=== PATIENT | female | born 1935 | race Caucasian/White ===

== ENCOUNTER 2017-03-23 06:54 | Inpatient (IN) | payer MEDICARE, OTHER ==
[2017-03-23] VITALS (15 sets, daily range): BP systolic 97–144; BP diastolic 51–79; PULSE 64–91; RESP 12–18; O2SAT 92–99
[~2017-03-23] VITALS: Ht 160 cm; Wt 71.8 kg
--- NOTE | 2017-03-23 07:02 | ED.REPORT ---
HPI-Trauma Multiple Date of Service Mar 23, 2017 ED Provider: Rohit Prado MD Patient is an 81 year old female with a history of hypothyroidism who presents to the ED via airlift from [facility] with right hip pain secondary to a GLF that occurred just prior to arrival. Hip is externally rotated and foreshortened upon arrival to the ED. Per nursing note, the patient has been nauseous and experienced one episode of emesis. Patient reports that she was getting up from a chair and fell onto her right side. She was seen at [facility] and sent to the ED with concern for hip fracture. History is limited due to somnolence following Hydromorphone given for pain en route. Nursing Notes Stated Complaint: RT HIP PAIN Nursing Notes Reviewed: Yes Allergies: Coded Allergies: No Known Allergies (Unverified , 03/23/17) Scheduled Levothyroxine (Levothyroxine) 112 Mcg Tablet 112 MCG PO DAILY General Time Seen by Provider: 07:29 Chief Complaint Pelvic pain/injury (Right hip pain) Hx Obtained From: Patient Arrived By: Ambulance Onset Occurred: Just prior to arrival Symptom Duration: Since onset Progression Since Onset: Constant Location: : Hip right Quality: Painful Severity: Current: Moderate Severity: Maximum: Moderate Associated with: Reports: Nausea, Vomiting Pertinent Negative: Pt denies other symptoms Recent Healthcare: No recent doctor visit, No recent hospitalization Past Medical History Past Medical History Hypothyrodism Past Surgical History Bilateral knee replacement Smoking History Unknown if Ever Smoker Social History Other Social History: Local resident ([facility]) Ambulatory Status Independent Review of Systems GI: Reports: Nausea, Vomiting Musculoskeletal: Reports: Joint pain (Right hip pain) Complete sys rev & neg: except as marked. Physical Exam Initial Vital Signs Vital Signs (First) Date Time Temp Pulse Resp B/P Pulse Ox O2 Delivery O2 Flow Rate FiO2 03/23/17 07:39 36.7 69 17 130/63 97 Nasal Cannula 2 Initial VS: Reviewed Skin: Warm, Dry, No cyanosis Psychiatric: Mood/affect normal, Behavior normal, Normal thought content General/Constitutional: Awake, Alert, No acute distress Head / Eyes: Atraumatic, Normocephalic, PERRL Neck: Atraumatic, Supple, Full range of motion Respiratory / Chest: Atraumatic, Breath sounds NL, Breath sounds = bilat, No respiratory distress Cardiovascular: Heart rate NL, Regular rhythm, Heart sounds NL, No gallop, No murmurs, No rubs Abdomen: Atraumatic, Soft, Non-tender, No distention Back: Atraumatic, Inspection NL Neurologic: No motor deficits, No sensory deficits, CN II - XII intact Upper Extremity / MS: Atraumatic, Neurologic intact, Vascular intact UPPER EXTREMITIES: Dried blood present from IV start; UE exam otherwise normal Lower Extremity / Pelvis / MS: Neurologic intact, Vascular intact Lower Ext Brief Normals: Hip L exam normal, Knee R exam normal, Knee L exam normal, Leg / calf R exam normal, Leg / calf L exam normal, Ankle R exam normal , Ankle L exam normal, Foot R exam normal, Foot L exam normal Right Hip: Positive: Leg externally rotated, Leg shortened, ROM reduced... ( All ROM limited due to pain), Tenderness present... LOWER EXTREMITIES: Bilateral knee replacement scars Good DP and PT pulses in both LE No obvious deformity present Interpretation & Diagnostics Lab Results Interpretation Result Diagram: 03/23/17 0810 03/23/17 0810 Test 03/23/17 08:10 White Blood Count 7.7th/mm3 (3.8-10.1) Red Blood Count 3.88mil/mm3 (3.90-5.20) Hemoglobin 11.6g/dL (12.0-15.6) Hematocrit 35.4% (35.0-46.0) Mean Corpuscular Volume 91.2fL (81-100) Mean Corpuscular Hemoglobin 29.9pg (27.0-35.0) Mean Corpuscular Hemoglobin Concent 32.8% (32.0-37.0) Red Cell Distribution Width 12.7% (12.3-15.4) Platelet Count 256bil/L (150-400) Neutrophils (%) (Auto) 79.7% (40-74) Lymphocytes (%) (Auto) 14.5% (14-46) Monocytes (%) (Auto) 4.3% (4-12) Eosinophils (%) (Auto) 0.5% (0-5) Basophils (%) (Auto) 0.3% (0-3) Prothrombin Time 10.5sec (8.1-12.5) Prothromb Time International Ratio 0.98ratio Activated Partial Thromboplast Time 25.0sec (22.8-33.0) Sodium Level 139mEq/L (134-144) Potassium Level 4.1mEq/L (3.5-5.2) Chloride Level 105mEq/L (97-108) Carbon Dioxide Level 22mmol/L (18-29) Blood Urea Nitrogen 18mg/dL (8-27) Creatinine 0.65mg/dL (0.57-1.00) Estimat Glomerular Filtration Rate 126mL/min (>59) Glucose Level 136mg/dL (60-99) Calcium Level 8.3mg/dL (8.5-10.1) Total Bilirubin 0.5mg/dL (0.0-1.2) Aspartate Amino Transf (AST/SGOT) 17U/L (0-50) Alanine Aminotransferase (ALT/SGPT) 13U/L (0-32) Alkaline Phosphatase 47U/L (25-165) Total Protein 5.8g/dL (6.4-8.4) Albumin 3.5g/dL (3.4-5.0) Hold Kramer Top Tube Received (Received) ECG Interpretation ECG Interpretation: Sinus Rhythm Rate [address] elevation Abnormal R wave progression No T wave abnormalities No prior for comparison Time: 20:13 Interpreted by: ED physician X-Ray Chest Interpretation Chest Xray Interpretation: IMPRESSION: 1. Widened mediastinum may be caused by a combination of AP technique, tortuous aorta and prominent central pulmonary vessels. Recommend standard 2-view chest x-ray or chest CT for further evaluation. 2. Right suprahilar density may be pneumonia or atelectasis. Dictated by: Quita Abernathy M.D. on 03/23/2017 at 9:35 Interpretation / Wet Read by: Interpret - Radiologist X-Ray Interpretation Xray Interpretation: IMPRESSION: Right femoral neck fracture. Dictated by: Quita Abernathy M.D. on 03/23/2017 at 9:43 X-Ray Ordered: Hip right Interpretation / Wet Read by: Interpret - ED physician Re-Eval/Medical Decision Med Decision/Clinical Course Patient is a relatively healthy 81-year-old female who presents to the emergency department after being airlifted here from [facility] after sustaining a ground-level fall onto her right hip. She is complaining of right hip pain examination reveals external rotation and foreshortening of her right lower extremity. She is neurovascularly intact with good DP and PT pulses. She is somewhat somnolent after receiving hydromorphone by EMS and provides limited history. Not on blood thinners and she did not strike her head. Here in the emergency department the patient is afebrile with stable vital signs and examination as above. EKG Sinus Rhythm Rate [address] elevation Abnormal R wave progression No T wave abnormalities No prior for comparison Hip X-ray Right femoral neck fracture. Chest X-ray IMPRESSION: 1. Widened mediastinum may be caused by a combination of AP technique, tortuous aorta and prominent central pulmonary vessels. Recommend standard 2-view chest x -ray or chest CT for further evaluation. 2. Right suprahilar density may be pneumonia or atelectasis. Patient remained hemodynamically stable and in no apparent distress. Full head to toe examination revealed no other additional injuries. Patient discussed with orthopedic surgery and they plan to operatively intervene later this afternoon. She has been made nothing by mouth and placed on maintenance fluids. Patient was discussed with admitting hospitalist accepted for further management. Re-Evaluation/Progress : Time of Eval: 09:35 Re-Evaluation/Progress Note: Patient is resting comfortably. Consultation #1: Referral / Consult Name: Jack Null MD Consulted With: Orthopedic Call Returned at: 09:33 Pellet Machine Operator: Will see patient, Agrees with eval, Agrees with plan Note: Agrees to consult. Recommends admission to the hospitalist. Consultation #2: Referral / Consult Name: Jono Rodriguez MD Consulted With: Hospitalist Call Returned at: 10:56 Pellet Machine Operator: Will see patient, Agrees with eval, Agrees with plan, Accepts admit Counseled Regarding: Diagnosis, Lab results, Need for admission Discharge & Departure Impression: Primary Impression: Fracture of femoral neck, right Encounter type: initial encounter Fracture type: closed Qualified Code: S72.001A - Fracture of unspecified part of neck of right femur, initial encounter for closed fracture Additional Impressions: Fall from ground level Altered mental status Altered mental status type: unspecified Qualified Code: R41.82 - Altered mental status, unspecified Posttraumatic pain Nausea and vomiting Vomiting type: unspecified Vomiting Intractability: unspecified Qualified Code: R11.2 - Nausea with vomiting, unspecified Disposition: ADMITTED TO HOSPITAL Discharge Condition All VS Reviewed: Yes Condition: Stable Referrals: Narendra Torres MD (PCP) Makenzieibe Attestation Portions of this note were transcribed by Ambar Preciado. I, Dr. Prado personally performed the history, physical exam and medical decision-making; I reviewed and confirmed the accuracy of the information in the transcribed note. Signed by: Glenny Valdez, 03/23/17 1102. copies to: Narendra Torres MD,Rohit Peacock MD Mar 23, 2017 07:02 AMBAR PRECIADO Mar 23, 2017 07:33
[2017-03-23] MEDS ORDERED: Ondansetron 2 mg/mL 2 mL Inj IVPUSH ONE (07:50)
[2017-03-23] MEDS ORDERED: Ketamine 10 mg/mL 20 mL Inj ONE (08:00)
[2017-03-23] MEDS ORDERED: EPHEDrine/NS 5 mg/mL 5 mL Syringe ONE (08:00)
[2017-03-23] MEDS ORDERED: Phenylephrine/NS 100 mCg/mL 10 mL Syringe IVPUSH ONE (08:00)
[2017-03-23] MEDS ORDERED: fentaNYL-PF 50 mCg/mL 2 mL Inj ONE (08:00)
[2017-03-23] MEDS ORDERED: Propofol 10,000 mCg/mL 20 mL Inj ONE (08:00)
[2017-03-23] MEDS ORDERED: LEVO112T4 PO (08:04)
[2017-03-23] MEDS: Lactated Ringer's 1,000 ML IV SCH ×4 (08:06→22:38)
[2017-03-23 08:27] LABS: BASOPHILS % (AUTO) 0.3 % (0-3); EOSINOPHILS % (AUTO) 0.5 % (0-5); MONOCYTES % (AUTO) 4.3 % (4-12); Mean Corpuscular Hemoglobin 29.9 pg (27.0-35.0); Mean Corpuscular Volume 91.2 fL (81-100); NEUTROPHILS % (AUTO) 79.7 % (40-74); Platelet Count 256 bil/L (150-400)
[2017-03-23 08:48] LABS: INR 0.98 ratio
--- NOTE | 2017-03-23 09:41 | DRSVH ---
PROCEDURE: X-RAY CHEST ONE VIEW, PORTABLE ([id number]) INDICATIONS: Acute mental status change. TECHNIQUE: One view of the chest was acquired. COMPARISON: None. FINDINGS: Surgical changes and devices: None. Lungs and pleura: There is a right suprahilar density. There is thickening of the right minor fissur e or trace fluid within the fissure. No pneumothorax. Mediastinum: Widened mediastinum. Heart size is normal. Bones and chest wall: No suspicious bony lesions. Overlying soft tissues appear unremarkable. IMPRESSION: 1. Widened mediastinum may be caused by a combination of AP technique, tortuous aorta and prominent c entral pulmonary vessels. Recommend standard 2-view chest x-ray or chest CT for further evaluation. 2. Right suprahilar density may be pneumonia or atelectasis. Dictated by: Quita Abernathy M.D. on 03/23/2017 at 9:35 Approved by: Quita Abernathy M.D. on 03/23/2017 at 9:39
--- NOTE | 2017-03-23 09:46 | DRSVH ---
PROCEDURE: X-RAY RIGHT HIP COMPLETE, MINIMUM TWO VIEWS ([id number]) INDICATIONS: 81 year-old woman with fall. TECHNIQUE: 2 views of the hip were acquired. COMPARISON: None. FINDINGS: Bones: There is a subcapital fracture of the right femoral neck with increased angulation. No suspi cious bony lesions. The visualized pelvic ring appears intact. Degenerative joint disease noted in the hips bilaterally. Soft tissues: No suspicious soft tissue calcifications or masses. IMPRESSION: Right femoral neck fracture. Dictated by: Quita Abernathy M.D. on 03/23/2017 at 9:43 Approved by: Quita Abernathy M.D. on 03/23/2017 at 9:44
[2017-03-23] MEDS ORDERED: MetoCLOpramide 5 mg/mL 2 mL Inj IVPUSH ONE (10:15)
[2017-03-23] MEDS ORDERED: Alum-Mag Hydrox-Simeth 30 mL Suspension PO PRN ×2 (11:00→18:40)
[2017-03-23] MEDS ORDERED: Ondansetron 2 mg/mL 2 mL Inj IVPUSH PRN ×2 (11:00→16:55)
[2017-03-23] MEDS ORDERED: Polyethylene Glycol (PEG) 17 Gm Powder PO PRN (11:00)
[2017-03-23] MEDS ORDERED: fentaNYL-PF 50 mCg/mL 2 mL Inj IVPUSH ONE (11:10)
[2017-03-23] MEDS ORDERED: HYDROmorphone 0.5 mg/0.5 mL iSecure Syringe IVPUSH ONE (11:10)
[2017-03-23] MEDS ORDERED: HYDROmorphone 0.5 mg/0.5 mL iSecure Syringe IVPUSH PRN (13:00)
--- NOTE | 2017-03-23 13:27 | PCM.HPMED ---
Subjective Date of Service Mar 23, 2017 Primary Provider: Admitting Physician: Jono Rodriguez MD Primary Care Physician: Zoran Attending Physician: Jono Rodrgiuez MD Chief Complaint: Hip Fracture History of Present Illness: Patient is a 81 yo F with pmh of hypothyroidism, breast cancer s/p mastectomy, tristen knee replacement and femur fracture, who is being admitted due to hip fracture. Patient was at home, getting up from chair, tried to kick in a chair and ended up tripping and falling on her right side. She denies any syncopal episode at that point, did not hit her head. She mentioned that she did have a bone density scan about 15 years ago and it was normal. Does take vitamin D at home. Denies chest pain, shortness of breath or diarrhea. Allergies Coded Allergies: No Known Allergies (Unverified , 03/23/17) Constitutional: No: Chills, Fever, Malaise, Other, Sweats, Weakness Eyes: Denies: Blurred Vision, Conjunctive Inflammation, Double Vision, Eyelid Inflammation, Other, Pain, Pigmentosa, Redness, Retinitis, Vision Changes ENT: Denies: Dental Problems, Dysphagia, Ear Discharge, Ear Pain, Hoarseness, Membranes Dry, Nasal Congestion, Nose Discharge, Nose Pain, Other, Throat Pain, Tinnitus, Ulcers/Sores in Mouth Cardiovascular: Denies: Chest Pain, Edema, Lt Headedness, Orthopnea, Other, Palpitations, Paroxysmal Noc. Dyspnea Respiratory: Denies: Cough, Hemoptysis, Other, Pleuritic Chest Pain, SOB with Exertion, Shortness of Breath, Sputum, Wheezing Gastrointestinal: Denies: Abdominal Pain, Change in Appetite, Constipation, Diarrhea, Heartburn, Hematochezia, Melena, Nausea, Other, Use of Laxatives, Vomiting Genitourinary: Denies: Anuria, Change in Frequency, Dysuria, Hematuria, Incontinence, Nocturia, Other, Retention Musculoskeletal: Reports: Other (as per HPI) Skin: Denies: Bruising, Dry or Flakiness, Jaundice, Lesions, Other, Rash, Scars , Ulcers Neurological: Denies: Change in Speech, Confusion, Dizziness, Dyskinesia, Hyper Reflexia, Incoordination, Numbness, Other, Seizures, Somnolence, Tremors, Weakness Psychologic: Denies: Agitation, Disorientation, Excitation, Giddiness, Hostile , Insomnia, Instability, Bonnie, Nervousness, Night Terrors, Other, Perseveration , Phobia, Sexual Disturbances Endocrine: Denies: Change in Appitite, Diaphoresis, Intolerent to Heat/Cold, Polydipsea, Polyuria PMH Social History Hx Alcohol Use: Yes (socially) Hx Substance Use: No Smoking Status: Unknown if Ever Smoker Exam Vital Signs Vital Sign - Last Date Time Temp Pulse Resp B/P Pulse Ox O2 Delivery O2 Flow Rate FiO2 03/23/17 11:28 36.5 64 17 144/79 99 Nasal Cannula 3.00 Exam Skin: Warm, Dry, No cyanosis Psychiatric: Mood/affect normal, Behavior normal, Normal thought content General/Constitutional: Awake, Alert, No acute distress Head / Eyes: Atraumatic, Normocephalic, PERRL Neck: Atraumatic, Supple, Full range of motion Respiratory / Chest: Atraumatic, Breath sounds NL, Breath sounds = bilat, No respiratory distress Cardiovascular: Heart rate NL, Regular rhythm, Heart sounds NL, No gallop, No murmurs, No rubs Abdomen: Atraumatic, Soft, Non-tender, No distention Back: Atraumatic, Inspection NL Neurologic: No motor deficits, No sensory deficits, CN II - XII intact Musckoskletal: Right leg rotated internally Lab and Diagnostics Result Diagram: 03/23/17 0810 03/23/17 0810 X-Rays, CTs and MRIs XR right hip IMPRESSION: Right femoral neck fracture. Assessment & Plan > Right hip fracture - subcapital fracture of the right femoral neck with increased angulation, ortho been consulted, OR today - zofran prn for nausea - morphine for pain , patient got dilauded enroute, did not like how it made her feel - DVT prophylaxis after surgery - calcium borderline low, will check vitamin D levels > Hypothyroidism - will continue home dose FEN: npo for now , can be started on regular diet after surgery Patient is expected to stay inpatient > 2 days due to nature of the disease and complexities that can arise from it. Dispo: likely SNF after surgery. Pain Evaluation: Adequate Pain Control Resuscitation Status: CPR: Attempt Resuscitation Time spent 35 mins. Jono Rodriguez MD Mar 23, 2017 13:27
[2017-03-23] MEDS ORDERED: Bupivacaine Liposome 1.3% 20 mL Inj ONE (15:22)
[2017-03-23] MEDS ORDERED: 0.9% Sodium Chloride 200 ML ONE (15:26)
[2017-03-23] MEDS: Tranexamic Acid 100 mg/mL 10 mL Inj ONE ×2 (15:30→16:45)
[2017-03-23] MEDS ORDERED: Bupivacaine-MPF 0.25%/EPI 30 mL Inj INFILTRATE ONE (15:54)
[2017-03-23] MEDS ORDERED: Gentamicin 40 mg/mL 2 mL Inj IRRIGATION ONE ×2 (15:55→16:37)
--- NOTE | 2017-03-23 16:23 | NUR ---
admitted to room 1022 from ER at 1200 alert, oriented, comfortable, VSS, signed consent for partial R JANES, daughter here, Ortho signs OK, taken to OR at 1500
[2017-03-23] MEDS ORDERED: HYDROmorphone 1 mg/mL Inj IVPUSH PRN (16:55)
[2017-03-23] MEDS ORDERED: Lactated Ringer's 1,000 ML IV SCH (16:55)
[2017-03-23] MEDS ORDERED: Atropine 0.4 mg/mL Inj IVPUSH PRN (16:55)
[2017-03-23] MEDS ORDERED: fentaNYL-PF 50 mCg/mL 2 mL Inj IVPUSH PRN (16:55)
[2017-03-23] MEDS ORDERED: MetoCLOpramide 5 mg/mL 2 mL Inj IVPUSH PRN (16:55)
[2017-03-23] MEDS ORDERED: Lactated Ringer's 500 ML IV PRN (16:55)
[2017-03-23] MEDS ORDERED: Dexamethasone 4 mg/mL Inj IVPUSH PRN (16:55)
[2017-03-23] MEDS ORDERED: EPHEDrine Sulfate 50 mg/mL Inj IVPUSH PRN (16:55)
[2017-03-23] MEDS ORDERED: Labetalol 5 mg/mL 4 mL Inj IV PRN (16:55)
[2017-03-23] MEDS ORDERED: hydrALAZINE 20 mg/mL Inj IVPUSH PRN (16:55)
[2017-03-23] MEDS ORDERED: Phenylephrine 10,000 mCg/mL Inj IVPUSH PRN (16:55)
--- NOTE | 2017-03-23 17:14 | PCM.ANEP1 ---
Post Anesthesia PACU Phase 1 Assessment Date of Service: Mar 23, 2017 Vital Signs 36.5 100/57 93 16 94% RA Anesthetic Administered: SAB Level of Alertness: Awake, talking CÁRDENAS's with Equal Strength: Yes Pain: No Pain Scale Score: 0 Nausea or Vomiting: No CV Function & Hydration Stable: Yes Airway Device: Oxygen Delivery: Room Air Lungs: Clear to Auscultation Dermatome Level: T8 (Costal Margin) PACU Phase 2 Assessment Complications: No Follow up Care: No Patient Instructions Provided: Yes Graham Woodall MD Mar 23, 2017 17:14
--- NOTE | 2017-03-23 17:15 | PCM.HPANE ---
Patient Data Date of Service: Mar 23, 2017 Surgeon Admitting Provider:Jono Rodriguez MD Attending Provider:Jono Rodriguez MD Primary Care Physician:Zoran Other Provider: Reason for Visit Right Hip Fracture Ht/WT & BMI Height (Feet): 5 Height (Inches): 3.00 Weight (Kilograms): 71.800 Body Mass Index 28.05 Allergies Coded Allergies: No Known Allergies (Unverified , 03/23/17) Past Anesthesia History Anesthesia History: Denies:: Abnormal Airway, Anesthesia Reactions Diabetes History Hx Diabetes?: No MRSA MRSA: No Medications Reported Medications Levothyroxine 112 Mcg [id number] Mcg PO DAILY For Thyroid Replacement Ref 0 03/23/17 History History of ENT Problems?: No HEENT History: Denies:: Cataracts Dysphagia Glaucoma Sinus Problem Denture Type: None Teeth Condition: Within Normal Limits Hx of Heart Problems?: No Cardiovascular History: Denies:: Congestive Heart Failure Hypertension Hx of Respiratory Problem?: No Respiratory History: Denies:: Tuberculosis Hx Neurologic Problems?: No Hx of GI Problems?: No Hx of Problems?: No Genitourinary History: Positive for:: Urinary Tract Infection Female Hx: Denies:: Currently Hx Musculoskeletal Problems?: Yes Musculoskeletal History: Positive for:: Joint Replacement (both knees) Denies:: Back Injury Hx of Psycho/Social Problems?: No Hx Surgeries?: Yes (left mastectomy) History Blood Transfusions: Positive for:: Accept Blood Products? Blood Transfusions Denies:: Blood Transfuse Reaction Hx Diabetes: No Hx Alcohol Use: Yes (socially)Hx Substance Use: No Smoking Status: Unknown if Ever Smoker Stop/Bang Treated for Sleep Apnea?: No Do You Have a CPAP Machine?: No S-Snoring: Do You Snore Loudly: No T-Tired: feel tired, fatigued: No O-Obsered: Observed not breath: No P-Blood Pressure: treated: No B- Body Mass Index > 35 kg/m2: No A- Age over 50: Yes N- Neck Large Circumference: No G- Gender Male: No LIZBETH Total Score: 0 LIZBETH Risk Assessment: Low Risk, <3 Yes Risk Assessment Category Category 1A: Patient has history of documented sleep apnea, and HAS NOT received any narcotic, sedative or anesthesia administration during this stay. Category 1B: Patient has history of documented sleep apnea, and HAS received any narcotic , sedative or anesthesia administration during this stay Category 2: Patient has SUSPECTED Obstructive Sleep Apnea, and HAS received any narcotic , sedative or anesthesia administration during this stay. Category 3: Patient has SUSPECTED Obstructive Sleep Apnea and HAS NOT received narcotic, sedative or anesthesia administration during this stay. Category 4: Outpatient in Procedural Areas with known sleep apnea or who screen positive for High Risk via the STOP/BANG questionnaire. Exam Exam Vital Signs Vital Signs Date Time Temp Pulse Resp B/P Pulse Ox O2 Delivery O2 Flow Rate FiO2 03/23/17 11:28 36.5 64 17 144/79 99 Nasal Cannula 3.00 03/23/17 10:49 36.8 67 17 127/71 96 Room Air 03/23/17 09:17 67 17 127/71 96 Room Air 03/23/17 07:39 36.7 69 17 130/63 97 Nasal Cannula 2 General Appearance: Alert, Oriented X3, Cooperative, No Acute Distress HEENT/AIRWAY: MP 2 Lungs: Clear to Auscultation, Normal Air Movement Heart: Exam Unremarkable, Regular Rate/Rhythm, No Murmurs/Rubs/Gallops Meds/Labs/Diagnostics Admission Meds Current Medications Ondansetron HCl 8 mg 8 mg ONCE ONCE IVPUSH Last administered on 03/23/17 08: 00; Start 03/23/17 at 07:50; Stop 03/23/17 at 07:53; Status DC Lactated Ringer's (Lr) 1,000 ml @ 100 mls/hr Q10H IV Last administered on 03/23 08:06; Start 03/23/17 at 07:50 Metoclopramide HCl (Reglan Inj) 5 mg ONCE ONCE IVPUSH Last administered on 10:29; Start 03/23/17 at 10:15; Stop 03/23/17 at 10:16; Status DC Labs Test 03/23/17 08:10 White Blood Count 7.7th/mm3 (3.8-10.1) Red Blood Count 3.88mil/mm3 (3.90-5.20) Hemoglobin 11.6g/dL (12.0-15.6) Hematocrit 35.4% (35.0-46.0) Mean Corpuscular Volume 91.2fL (81-100) Mean Corpuscular Hemoglobin 29.9pg (27.0-35.0) Mean Corpuscular Hemoglobin Concent 32.8% (32.0-37.0) Red Cell Distribution Width 12.7% (12.3-15.4) Platelet Count 256bil/L (150-400) Neutrophils (%) (Auto) 79.7% (40-74) Lymphocytes (%) (Auto) 14.5% (14-46) Monocytes (%) (Auto) 4.3% (4-12) Eosinophils (%) (Auto) 0.5% (0-5) Basophils (%) (Auto) 0.3% (0-3) Prothrombin Time 10.5sec (8.1-12.5) Prothromb Time International Ratio 0.98ratio Activated Partial Thromboplast Time 25.0sec (22.8-33.0) Sodium Level 139mEq/L (134-144) Potassium Level 4.1mEq/L (3.5-5.2) Chloride Level 105mEq/L (97-108) Carbon Dioxide Level 22mmol/L (18-29) Blood Urea Nitrogen 18mg/dL (8-27) Creatinine 0.65mg/dL (0.57-1.00) Estimat Glomerular Filtration Rate 126mL/min (>59) Glucose Level 136mg/dL (60-99) Calcium Level 8.3mg/dL (8.5-10.1) Total Bilirubin 0.5mg/dL (0.0-1.2) Aspartate Amino Transf (AST/SGOT) 17U/L (0-50) Alanine Aminotransferase (ALT/SGPT) 13U/L (0-32) Alkaline Phosphatase 47U/L (25-165) Total Protein 5.8g/dL (6.4-8.4) Albumin 3.5g/dL (3.4-5.0) Hold Kramer Top Tube Received (Received) Plan Impression Patient chart reviewed, patient interviewed and anesthestic plan with risks, benefits, and alternatives discussed, and informed consent obtained. NPO per Anesth. Guidelines: Yes ASA Physical Status: ASA2 Mod Systemic Disease Anesthetic Plan: SAB Bene/Risks/Altern/Consents: Yes HP Complete Prior to Induction: Yes Graham Woodall MD Mar 23, 2017 14:32
--- NOTE | 2017-03-23 17:50 | NUR ---
returned to room 1022 from PACU S/P right partial hip arthroplasty. VSS, alert, denies pain or nausea, but only wanted soup for dinner. ortho signs OK, bulky dressing C/D/I
--- NOTE | 2017-03-23 18:21 | DRSVH ---
PROCEDURE: X-RAY PELVIS ONE OR TWO VIEWS ([id number]) INDICATIONS: POST OP TECHNIQUE: 1 view of the lower pelvis acquired. COMPARISON: [facility], CR, XR HIP 2VW RT, 03/23/2017, 8:10. FINDINGS: Bones: Patient is status post right hip arthroplasty, with hardware components in expected positions . The hip joint appears congruent. The visualized bony structures appear intact. There is severe l eft hip joint degeneration. Soft tissues: Overlying postoperative changes are noted. No suspicious soft tissue densities. IMPRESSION: Right hip prosthesis in anatomic alignment. Dictated by: Quita Abernathy M.D. on 03/23/2017 at 18:18 Approved by: Quita Abernathy M.D. on 03/23/2017 at 18:19
[2017-03-23] MEDS ORDERED: Ondansetron 8 mg ODT Tablet PO PRN (18:40)
[2017-03-23] MEDS ORDERED: Magnesium Hydroxide 10 mL Oral Concentration PO PRN (18:40)
[2017-03-23] MEDS ORDERED: hydrOXYzine Pamoate 25 mg Capsule PO PRN (18:40)
[2017-03-23] MEDS ORDERED: MetoCLOpramide 5 mg/mL 2 mL Inj IV PRN (18:40)
[2017-03-23] MEDS ORDERED: diphenhydrAMINE 25 mg Capsule PO PRN (18:40)
[2017-03-23] MEDS ORDERED: LORazepam 0.5 mg Tablet PO PRN (18:40)
[2017-03-23] MEDS ORDERED: Sodium Biphos-Phos 133 mL Enema RECTAL PRN (18:40)
[2017-03-23] MEDS ORDERED: Vancomycin 1 Gm/200 mL NS Premix IV ONE (20:30)
[2017-03-23] MEDS: HYDROcodone-APAP 5-325 mg Tablet PO PRN (21:44)
[2017-03-24 00:27] VITALS: BP 101/64; PULSE 80; RESP 16; O2SAT 97
[2017-03-24] MEDS: CeFAZolin 2 Gm/50 mL D5W IV Premix IV SCH ×3 (00:58→16:44)
--- NOTE | 2017-03-24 02:18 | HP ---
[address] [address] HISTORY AND PHYSICAL PATIENT: WILVER HSU : 1935 MR#: [id number] ADMIT: 03/23/2017 JOB ID: [id number] HISTORY OF PRESENT ILLNESS: The patient is seen in consultation after being admitted to the emergency department following a fall. She denies loss of consciousness. She tripped while moving across her living room. She complained of isolated but severe right hip pain, and inability to move the leg, nor place weight on the limb. She was evaluated and noted to have a femoral neck fracture. PAST MEDICAL HISTORY: The past medical history, social history, family history, review of systems are noted and reviewed in the chart. She has undergone several orthopedic procedures, but is otherwise very healthy. Taking only thyroid medication for medications. PHYSICAL EXAMINATION: GENERAL: She is alert and oriented x3. Appropriate mood and affect. No head and neck trauma noted. No spinal tenderness or pain. Marked discomfort with rotation of her hip. Any rotation causes hip pain. There are no skin lesions in the area of the hip. RADIOGRAPHS: Reveal the femoral neck fracture. Treatment options discussed with the patient and family. They would like to proceed with bipolar hip arthroplasty. They understand and accept the potential for risks and complications which include, but not limited to, leg length inequality and dislocation, infection, thromboembolic, neurovascular . They state understanding and wish to proceed.
[2017-03-24] MEDS: HYDROcodone-APAP 5-325 mg Tablet PO PRN ×2 (03:55→08:31)
--- NOTE | 2017-03-24 04:56 | NUR ---
Activity Pt post op day 1 for R hip surgery with spinal. FC out in surgery. Pt OOB to BSC to void with 2PA and FWW X2 this shift and tolerates well. Dressing C/D/I and to be changed post op day 2.
[2017-03-24 05:17] VITALS: BP 119/69; PULSE 88; RESP 16; O2SAT 96
--- NOTE | 2017-03-24 05:28 | OP ---
[address] [address] OPERATIVE REPORT PATIENT: WILVER HSU : 1935 MR#: [id number] ADMIT: 03/23/2017 JOB ID: [id number] DATE OF SURGERY: PREOPERATIVE DIAGNOSIS(ES): Femoral neck fracture right hip. POSTOPERATIVE DIAGNOSIS(ES): Femoral neck fracture right hip. PROCEDURE: Right bipolar hip arthroplasty. SURGEON: Jack Null MD. RETAIL CLIENT MANAGER: Theodore Banuelos PA-C. Golf Player Assistant required due to the complexity of the operation. INDICATIONS: This woman fell and has a femoral neck fracture. She elects for a bipolar arthroplasty she understands and accepts the potential for risks and complication which include but is not limited to infection, thromboembolic, neurovascular events, as well as leg length inequality, dislocation. PROCEDURE: The patient was prepped and draped in the usual sterile fashion. Lateral decubitus position on the table. With posterior-lateral approach made dissection carried down. Deep fascia opened. External rotators tagged and released. Capsule T tagged and released. Femoral neck dislocated and a revised femoral neck cut made. The head fragment was then removed as well as the intercalated segment and the area was lavaged and debrided. A box osteotome followed by progressive broaching to a #4 DePuy [place] stem. A distal cement restrictor plug was placed. Trial reduction was performed and a 1.5 neck length was chosen with a 44 mm head after templating the head size. Copious irrigation of the canal followed by pressurized cementation. Excess cement removed during the curing process. Final construct assembled. Excellent stability obtained after dislocation. Capsule closed with #1 braided nylon. External rotators closed with number one braided nylon #2 Quill followed by 2-0 Vicryl, 3-0, and a 4-0 intracuticular stitch utilized to close the skin.
--- NOTE | 2017-03-24 08:30 | PCM.PNMED ---
Subjective Date of Service Mar 24, 2017 Subjective Patient seen and examined today. Alert and oriented X 3, however feels nauseus. Vitals stable. Exam Vital Signs Vital Sign - Last Date Time Temp Pulse Resp B/P Pulse Ox O2 Delivery O2 Flow Rate FiO2 03/24/17 05:17 36.9 88 16 119/69 96 Nasal Cannula 3.00 Intake and Output 03/23/17 03/23/17 03/24/17 Cumulative From/Thru 15:00 23:00 07:00 03/23/17 07:39 - 03/24/17 06:30 Intake Total 950 ml 1607 ml 2557 ml Output Total 100 ml 600 ml 700 ml Balance 850 ml 1007 ml 1857 ml Intake Oral 0 ml 200 ml 200 ml IV Total 950 ml 1407 ml 2357 ml Output Urine Total 0 ml 600 ml 600 ml Estimated Blood Loss 100 ml 100 ml # Bowel Movements 1 1 Lab and Diagnostics Result Diagram: 03/23/17 0810 03/23/17 0810 X-Rays, CTs and MRIs XR right hip IMPRESSION: Right femoral neck fracture. Assessment & Plan > Right hip fracture ( femoral neck) s/p Right bipolar hip arthroplasty POD #1 - subcapital fracture of the right femoral neck with increased angulation, s/p arthroplasty - entiemetics - oral pain meds - DVT prophylaxis - lovenox - calcium borderline low, will check vitamin D levels > Hypothyroidism - will continue home dose FEN: Regular diet Patient is expected to stay inpatient > 2 days due to nature of the disease and complexities that can arise from it. Dispo: likely SNF after surgery. VTE Mechanical Devices: Intermittant Pneumatic CD Resuscitation Status: CPR: Attempt Resuscitation Time spent 35 mins Jono Rodriguez MD Mar 24, 2017 08:30
[2017-03-24 08:32] LABS: BASOPHILS % (AUTO) 0.1 % (0-3); EOSINOPHILS % (AUTO) 0.5 % (0-5); MONOCYTES % (AUTO) 5.8 % (4-12); Mean Corpuscular Hemoglobin 29.8 pg (27.0-35.0); Mean Corpuscular Volume 91.2 fL (81-100); NEUTROPHILS % (AUTO) 85.4 % (40-74); Platelet Count 227 bil/L (150-400)
[2017-03-24] MEDS: Ondansetron 2 mg/mL 2 mL Inj IV PRN ×2 (09:07→12:21)
--- NOTE | 2017-03-24 09:11 | PCM.PNORTH ---
Subjective Date of Service: Mar 24, 2017 Visit Information: Reason for Visit Right Hip Fracture Surgery/Surgery Date Post-Op Day # Date of Admission: Mar 23, 2017 at 10:55 Hospital Day # Subjective Found patient awake and alert this morning and sitting up in bed. Patient complains of nausea and in fact vomits several times. I have discussed with patient this morning prior to her vomiting episode issues revolving around discharge and participation with formal physical therapy. Patient indicates she was living with a roommate prior to this hospitalization that she has family also coming into the area so she will have support postoperatively. I have advised patient that depending on her mobility level with physical therapy it would be reasonable to expect that she may discharge to correction facility for short time. Patient has not had any participation with formal therapy yet as of this time. Postop General: No Shortness of Breath, No Chest Pain Pain Management: PO Objective Exam Objective Alert and oriented 3 and pleasant. Patient is nauseous vomits during our examination this morning. Interoperative dressing is clean and needs reinforcement. Calf is soft and nontender. Thigh is mildly swollen but nontender. Total we will and sensation are intact at right lower extremity distally Anderson is absent SCDs are in place bilaterally. No physical therapy yet as of this time. Vital Signs and I/O Vital Sign - Last Date Time Temp Pulse Resp B/P Pulse Ox O2 Delivery O2 Flow Rate FiO2 03/24/17 05:17 36.9 88 16 119/69 96 Nasal Cannula 3.00 Intake and Output 03/23/17 03/23/17 03/24/17 Cumulative From/Thru 15:00 23:00 07:00 03/23/17 07:39 - 03/24/17 06:30 Intake Total 950 ml 1607 ml 2557 ml Output Total 100 ml 600 ml 700 ml Balance 850 ml 1007 ml 1857 ml Intake Oral 0 ml 200 ml 200 ml IV Total 950 ml 1407 ml 2357 ml Output Urine Total 0 ml 600 ml 600 ml Estimated Blood Loss 100 ml 100 ml # Bowel Movements 1 1 Lab & Micro Results Laboratory Tests Test 03/24/17 05:36 03/24/17 08:05 White Blood Count 7.6th/mm3 (3.8-10.1) Red Blood Count 3.62mil/mm3 (3.90-5.20) Hemoglobin 10.8g/dL (12.0-15.6) Hematocrit 33.0% (35.0-46.0) Mean Corpuscular Volume 91.2fL (81-100) Mean Corpuscular Hemoglobin 29.8pg (27.0-35.0) Mean Corpuscular Hemoglobin Concent 32.7% (32.0-37.0) Red Cell Distribution Width 12.8% (12.3-15.4) Platelet Count 227bil/L (150-400) Neutrophils (%) (Auto) 85.4% (40-74) Lymphocytes (%) (Auto) 8.1% (14-46) Monocytes (%) (Auto) 5.8% (4-12) Eosinophils (%) (Auto) 0.5% (0-5) Basophils (%) (Auto) 0.1% (0-3) Result Diagram: 03/24/17 0803/23/17 08 General Appearance: Alert, Oriented X3, Cooperative, Mild Distress (patient is nauseous and vomits during my visit.) Extremities: No Compartment Syndrom Noted, Thigh & Calf Soft/Nontender Postop Sensory Motor: Distal Motor Intact, Movement in Toes, Distal Sensation Intact Activity: Activity per PT, Ambulate with PT (weight-bear as tolerated at the right lower extremity using frontwheel walker.) Catheters: None Assessment & Plan Impression Patient is an 81-year-old female who has undergone a right hip bipolar hemiarthroplasty on 03/23/[address] Jack Null. Patient apparently lives with a roommate at baseline and is otherwise independently mobile prior to this incident. Problems: Plan Postop day #1 from right hip bipolar hemiarthroplasty performed on 03/23/[address] Jack Null. Continue weightbearing as tolerated on the right lower extremity using front wheeled walker. Continue formal physical therapy for mobility, gait and safety. No physical therapy yet as the time of this note. Continue Lovenox 40 mg subcutaneous daily 10 days postop with transition to ASA 81 mg 4 weeks postop for DVT prophylaxis. Continue by mouth pain medication as needed using Tylenol or [place] 5 for Percocet 5 or Roxicodone as needed. Avoid IV pain medication if possible. Interoperative dressing will be changed on postop day #2. Anderson is absent. Nursing please reinforce interoperative dressing today with additional MediPort tape or large Medipore panels as available. Nursing please discontinue right lower extremity SCD and may restart tomorrow on postop day #2. Please maintain left lower extremity SCD in place and working. Nursing please measure for an fit bilateral thigh-high TALIA hose. Left TALIA hose may be fit today on postop day #1 and right may be fitted tomorrow on postop day #2 after dressing change. Follow-up in 2 weeks at [facility] orthopedic clinic with mid-level provider for wound check and suture removal. Follow up in 6 weeks at [facility] orthopedic clinic with Dr. Jack Null with AP pelvis and right crosstable lateral hip x-rays on arrival. Orthopedics thanks hospitalist service for help with medical management of this patient. Orthopedics anticipate discharge to correction facility by hospitalist service on postop day #3, 03/26/2017 or when patient is medically stable to do so. VTE Prophylaxis: Sub-Q Enoxaparin (Lovenox 40 mg subcutaneous daily 10 days postop with transition to ASA 81 mg daily 4 weeks postop), SCDs (bilateral SCDs. Left SCD beginning 03/23/2017. Right SCD to begin on postop day #2.), TALIA Hose (bilateral thigh-high TALIA hose. Left TALIA hose should be fit today on postoperative day #1 and right may be held till postop day #2 after dressing change.) Resuscitation Status: CPR: Attempt Resuscitation Theodore Banuelos PA-C Mar 24, 2017 09:11
[2017-03-24] MEDS: Lactated Ringer's 1,000 ML IV SCH (11:20)
[2017-03-24 12:29] VITALS: BP 121/77; PULSE 78; RESP 18; O2SAT 96
--- NOTE | 2017-03-24 16:16 | NUR ---
Social Work- Multidisciplinary Rounds Pt discussed in rounds. Pt will likely need SNF at discharge. SW unable to see pt today due to high census. SW will continue to follow. LUPE Menendez
[2017-03-24] MEDS: oxyCODONE-Acetamin 5-325 mg Tablet PO PRN (16:43)
[2017-03-24 21:31] VITALS: BP 119/70; PULSE 91; RESP 20; O2SAT 94
[2017-03-25 00:13] LABS: APPEARANCE,URINE TURBID (CLEAR,HAZY); COLOR,URINE STRAW (YELLOW); OCCULT BLOOD,URINE NEGATIVE (NEGATIVE); UROBILINOGEN,URINE NORMAL (NORMAL)
[2017-03-25] MEDS: CeFAZolin 2 Gm/50 mL D5W IV Premix IV SCH (00:51)
[2017-03-25] MEDS: Lactated Ringer's 1,000 ML IV SCH ×2 (03:52→20:40)
[2017-03-25 05:55] LABS: BASOPHILS % (AUTO) 0.3 % (0-3); EOSINOPHILS % (AUTO) 0.3 % (0-5); Mean Corpuscular Hemoglobin 29.5 pg (27.0-35.0); Mean Corpuscular Volume 90.3 fL (81-100); NEUTROPHILS % (AUTO) 83.6 % (40-74); Platelet Count 207 bil/L (150-400)
[2017-03-25 06:05] VITALS: BP 132/85; PULSE 108; RESP 16; O2SAT 93
--- NOTE | 2017-03-25 06:11 | NUR ---
Hip Dressing reinforced per PA-C's request. SCD only placed on LLE per also PA-C's request. Pt. reports mild pain, and denies need for pain medication. Will continue to monitor.
--- NOTE | 2017-03-25 06:43 | PCM.PNORTH ---
Subjective Date of Service: Mar 25, 2017 Visit Information: Reason for Visit Right Hip Fracture Surgery/Surgery Date Post-Op Day # Date of Admission: Mar 23, 2017 at 10:55 Hospital Day # Subjective Foundation awake and alert this morning with head elevated in bed. No complaints of pain this time. Discussed participation with physical therapy yesterday and patient seems unclear as to exactly what she did. Advised patient of dressing changes morning and this was accomplished easily without incident. Patient indicates she feels better than she did yesterday and her nausea has resolved. Postop General: No Complaints, No Shortness of Breath, No Chest Pain Pain Management: PO Objective Exam Objective Alert and oriented 3 and pleasant. Interoperative dressing is clean and loosened. Interoperative dressings changed postoperative dressing this morning. There is an area of slight bleeding at the proximal aspect of the wound. Silver[place] is changed this morning. Calf and thigh are soft and nontender Toe wiggle and sensation are intact at right lower extremity distally Bilateral thigh-high TALIA hose are in place and these are readjusted this morning Left lower extremity SCDs in place Anderson is absent Gait 7 feet with formal physical therapy yesterday on 03/24/2017 Vital Signs and I/O Vital Sign - Last Date Time Temp Pulse Resp B/P Pulse Ox O2 Delivery O2 Flow Rate FiO2 03/25/17 06:05 37.0 108 16 132/85 93 Nasal Cannula 2.00 Intake and Output 03/24/17 03/24/17 03/25/17 Cumulative From/Thru 15:00 23:00 07:00 03/23/17 07:39 - 03/25/17 06:05 Intake Total 600 ml 400 ml 3557 ml Output Total 700 ml 650 ml 2050 ml Balance -100 ml -250 ml 1507 ml Intake Oral 600 ml 400 ml 1200 ml IV Total 2357 ml Output Urine Total 600 ml 650 ml 1850 ml Emesis 100 ml 0 ml 100 ml Estimated Blood Loss 100 ml # Bowel Movements 1 Lab & Micro Results Laboratory Tests Test 03/24/17 08:05 03/24/17 23:45 03/25/17 05:10 White Blood Count 7.6th/mm3 (3.8-10.1) 7.7th/mm3 (3.8-10.1) Red Blood Count 3.62mil/mm3 (3.90-5.20) 3.59mil/mm3 (3.90-5.20) Hemoglobin 10.8g/dL (12.0-15.6) 10.6g/dL (12.0-15.6) Hematocrit 33.0% (35.0-46.0) 32.4% (35.0-46.0) Mean Corpuscular Volume 91.2fL (81-100) 90.3fL (81-100) Mean Corpuscular Hemoglobin 29.8pg (27.0-35.0) 29.5pg (27.0-35.0) Mean Corpuscular Hemoglobin Concent 32.7% (32.0-37.0) 32.7% (32.0-37.0) Red Cell Distribution Width 12.8% (12.3-15.4) 12.5% (12.3-15.4) Platelet Count 227bil/L (150-400) 207bil/L (150-400) Neutrophils (%) (Auto) 85.4% (40-74) 83.6% (40-74) Lymphocytes (%) (Auto) 8.1% (14-46) 8.7% (14-46) Monocytes (%) (Auto) 5.8% (4-12) 7.0% (4-12) Eosinophils (%) (Auto) 0.5% (0-5) 0.3% (0-5) Basophils (%) (Auto) 0.1% (0-3) 0.3% (0-3) Sodium Level 134mEq/L (134-144) Potassium Level 4.2mEq/L (3.5-5.2) Chloride Level 100mEq/L (97-108) Carbon Dioxide Level 23mmol/L (18-29) Blood Urea Nitrogen 14mg/dL (8-27) Creatinine 0.63mg/dL (0.57-1.00) Estimat Glomerular Filtration Rate 130mL/min (>59) Glucose Level 133mg/dL (60-99) Calcium Level 8.5mg/dL (8.5-10.1) Urine Color Straw (YELLOW) Urine Appearance Turbid (CLEAR,HAZY) Urine pH 6.0 (5.0-8.0) Urine Specific [place] 1.019 (1.003-1.035) Urine Protein Negativemg/dL (NEG,TRACE) Urine Glucose (UA) Negativemg/dL (NEGATIVE) Urine Ketones 40mg/dL (NEGATIVE) Urine Occult Blood Negative (NEGATIVE) Urine Nitrite Negative (NEGATIVE) Urine Bilirubin Negative (NEGATIVE) Urine Urobilinogen Normalmg/dL (NORMAL) Urine Leukocyte Esterase Trace (NEGATIVE) Urine RBC 0-2/hpf (0-2) Urine WBC 0-5/hpf (0-5) Urine Epithelial Cells Moderate/hpf (NONE-MOD) Urine Crystals Amorphous urates (NONE Urine Bacteria None/hpf (NONE-FEW) Urine Hyaline Casts None/lpf (NONE) Urine Granular Casts None seen (NONE SEEN) Urine Waxy Casts None seen (NONE SEEN) Urine Red Blood Cell Casts None seen (NONE SEEN) Urine White Blood Cell Casts None seen (NONE SEEN) Urine Mucus Present (None Seen) Urine Trichomonas None seen (NONE SEEN) Urine Yeast None (NONE SEEN) Urinalysis Comment None Result Diagram: 03/25/17 0510 03/24/17 0805 General Appearance: Alert, Oriented X3, Cooperative, No Acute Distress Extremities: No Compartment Syndrom Noted, Thigh & Calf Soft/Nontender Postop Sensory Motor: Distal Motor Intact, Movement in Toes, Distal Sensation Intact Activity: Activity per PT, Ambulate with PT (weight-bear as tolerated at the right lower extremity using frontwheel walker.) Catheters: None Assessment & Plan Impression Patient is an 81-year-old female who has participated with formal physical therapy and achieved 7 feet and gait. She is no longer nauseated this morning and is generally feeling and doing better. Problems: Plan Postop day #2 from right hip bipolar hemiarthroplasty performed on 03/23/[address] Jack Null. Continue weightbearing as tolerated on the right lower extremity using front wheeled walker. Continue formal physical therapy for mobility, gait and safety. Continue Lovenox 40 mg subcutaneous daily 10 days postop with transition to ASA 81 mg 4 weeks postop for DVT prophylaxis. Continue by mouth pain medication as needed. Interoperative dressing is changed postop dressing this morning. Anderson is absent. Nursing please maintain left lower extremity SCD in place and working. Follow-up in [address] [facility] orthopedic clinic with mid-level provider for wound check and suture removal. Follow up in 6 weeks at [facility] orthopedic clinic with Dr. Jack Null with AP pelvis and right crosstable lateral hip x-rays on arrival. Orthopedics thanks hospitalist service for help with medical management of this patient. Orthopedics [facility] by hospitalist service on postop day #3, 03/26/2017 or when patient is medically stable to do so. VTE Prophylaxis: Sub-Q Enoxaparin (Lovenox 40 mg subcutaneous daily 10 days postop with transition to ASA 81 mg daily 4 weeks postop), SCDs (maintain the left SCD at this time. Avoid right SCD until right hip wound bleeding stopped.) , TALIA Hose (bilateral thigh-high TALIA hose) Resuscitation Status: CPR: Attempt Resuscitation Theodore Banuelos PA-C Mar 25, 2017 06:43 Theodore Banuelos PA-C Mar 25, 2017 06:43
--- NOTE | 2017-03-25 08:18 | PCM.PNMED ---
Subjective Date of Service Mar 25, 2017 Subjective Patient seen and examined today. Feels much better today. Had bowel movements. Vitals stable. Exam Vital Signs Vital Sign - Last Date Time Temp Pulse Resp B/P Pulse Ox O2 Delivery O2 Flow Rate FiO2 03/25/17 06:05 37.0 108 16 132/85 93 Nasal Cannula 2.00 Intake and Output 03/24/17 03/24/17 03/25/17 Cumulative From/Thru 14:59 22:59 06:59 03/23/17 07:39 - 03/25/17 06:05 Intake Total 600 ml 400 ml 3557 ml Output Total 700 ml 650 ml 2050 ml Balance -100 ml -250 ml 1507 ml Intake Oral 600 ml 400 ml 1200 ml IV Total 2357 ml Output Urine Total 600 ml 650 ml 1850 ml Emesis 100 ml 0 ml 100 ml Estimated Blood Loss 100 ml # Bowel Movements 1 Exam General/Constitutional: Awake, Alert, No acute distress Respiratory / Chest: Atraumatic, Breath sounds NL, Breath sounds = bilat, No respiratory distress Cardiovascular: Heart rate NL, Regular rhythm, Heart sounds NL, No gallop, No murmurs, No rubs Abdomen: Atraumatic, Soft, Non-tender, No distention Musckoskletal:Dressings in place, no signs of hematoma or worsening inflammation. Lab and Diagnostics Result Diagram: 03/25/17 0510 03/24/17 0805 X-Rays, CTs and MRIs XR right hip IMPRESSION: Right femoral neck fracture. Assessment & Plan > Right hip fracture ( femoral neck) s/p Right bipolar hip arthroplasty POD #1 - subcapital fracture of the right femoral neck with increased angulation, s/p arthroplasty - entiemetics - oral pain meds - DVT prophylaxis - lovenox - calcium borderline low, will check vitamin D levels > Hypothyroidism - will continue home dose FEN: Regular diet Patient is expected to stay inpatient > 2 days due to nature of the disease and complexities that can arise from it. Dispo: likely SNF VTE Prophylaxis: Sub-Q Enoxaparin (Lovenox 40 mg subcutaneous daily 10 days postop with transition to ASA 81 mg daily 4 weeks postop), SCDs (maintain the left SCD at this time. Avoid right SCD until right hip wound bleeding stopped.) , TALIA Hose (bilateral thigh-high TALIA hose) VTE Mechanical Devices: Intermittant Pneumatic CD Resuscitation Status: CPR: Attempt Resuscitation Time spent 35 mins Jono Rodriguez MD Mar 25, 2017 08:18
[2017-03-25] MEDS: oxyCODONE-Acetamin 5-325 mg Tablet PO PRN (11:15)
[2017-03-25 11:32] VITALS: BP 111/68; PULSE 96; RESP 16; O2SAT 87
--- NOTE | 2017-03-25 15:58 | NUR ---
Pain / Activity Pt states she has pain only when moving and that is mild pain reported as 2/10. Pt was up with PT this afternoon and was able to walk in the room and get to the BSC. Will encourage pt to tell staff when she needs to void; she has been voiding into her brief. Pt reports that she has had problems with incontinence for years. Care continues.
--- NOTE | 2017-03-25 16:22 | NUR ---
Received note from RN [facility]
--- NOTE | 2017-03-25 17:38 | NUR ---
Confusion Checked on pt when she put her call light on. Pt was trying to use her call light/TV controller to make a phone call. Also noticed that pt needed constant instructions for mobility when she used the BSC. Pt said she hoped she could remember what to do. Pt needs repeated instructions for moving and hip precautions. Care continues
[2017-03-25 21:14] VITALS: BP 122/79; PULSE 102; RESP 16; O2SAT 96
--- NOTE | 2017-03-26 02:23 | NUR ---
Activity/Mentation On initial assessment , patient alert and oriented but confused with the time of day. Patient denied any pain to hip area. Answered assessment questions appropriately. Patient able to move to use bedpan and used call light when finished. Call light within reach. Care continues.
[2017-03-26 04:33] VITALS: BP 100/68; PULSE 83; RESP 18; O2SAT 96
--- NOTE | 2017-03-26 04:46 | NUR ---
Mentation/ IV At 0400, patient woke up screaming out for help . Patient did not use call light. Patient appeared very confused. On assessment, patient pulled out IV line and tore off Island dressing. Island dressing reapplied. No IV meds scheduled for 0830. Patient up to bedside commode. Patient back in bed. Patient instructed to use call light
[2017-03-26 06:49] LABS: Mean Corpuscular Hemoglobin 30.4 pg (27.0-35.0); Mean Corpuscular Volume 90.8 fL (81-100)
--- NOTE | 2017-03-26 10:29 | NUR ---
Faxed new referral to [facility] in [place] per LUPE and order Addendum: 03/26/17 at 1311 by DARIO RICHMOND CM Faxed updated medication list and called and left a message for Lakisha in admissions. Updated ELEMENTARY SCHOOL TEACHER'S AIDE Addendum: 03/26/17 at 1436 by DARIO RICHMOND CM [facility] can accept when ready pending days review. Business office is out for the day this will be checked first thing on 03/27
--- NOTE | 2017-03-26 12:23 | NUR ---
Social Work- Initial Assessment/ Readiness for Discharge/ Multidisciplinary Rounds Data: See Initial Assessment and Advance Directive Intervention for additional information. Pt discussed in rounds. Pt is POD 2. Pt is not ready for discharge at this time. Pt will need SNF at discharge, CYNDI order received. Yovana is a 81 year old admitted 03/23/17 for right hip fracture per H&P. Pt's insurance is [employer] and [employer]. Pt has no PCP at this time. Pt's readmit risk score is 1. CYNDI received call from pt's daughter regarding discharge plan. Pt's daughter completed assessment over the phone as she states that her mother can be forgetful and get confused. Pema is designated automotive parts counter person for discharge planing. CYNDI role explained. Pt's capacity for self-care assessed. Pt resides on [address] in a home alone. Pt has been independent with ADLs and self-care until hospitalization. Pema feels that pt's health is declining and she is going to need more assistance at home. Pema is working with family to obtain this assistance and pt's granddaughter is moving in next door to pt. Pt's daughter Pema will also be staying with pt after discharge and SNF until pt is able to be at home. Pema is working on adapting pt's home for safety and coordinating assistance. Pt uses no DME at baseline. Pt drives up until this admission. Pt has no history with services. Pt has history at [facility]. Pt has no DPOA on file and CYNDI requested that Pema bring in copy of DPOA. CYNDI discussed SNF recommendation with Pema and Pema states that she and pt are agreeable and anticipated this. Pema declined SNF choice list and stated she already had two choices 1) [facility] in [facility] and 2) [facility] in [place]. INTERNATIONAL SOURCING MANAGER made referral to [facility]. T/C to [facility] regarding referral and Shell will call WRAPPER REWINDER when referral has been received. Paperwork in chart and PASRR in folder. SW spoke with pt in the room regarding plan, pt agreeable. SW provided Discharge planning Checklist at bedside and requested that pt contact WRAPPER REWINDER if needs identified. SW provided phone number and plan on whiteboard. Pt agreeable. SW will continue to follow. Assessment: Pt for whom SNF is medically indicated. Plan: Referrals made to [facility] and [facility]. Pt to discharge to SNF, likely tomorrow. Paperwork in chart and PASRR in folder. CYNDI will continue to follow. LUPE Menendez Addendum: 03/26/17 at 1230 by SHU VALLEJO SS Amended: Links added. Addendum: 03/26/17 at 1459 by SHU VALLEJO SS Pt has been accepted at [facility] with [facility] to follow. Pt has also been accepted at [facility] pending [facility] review. CYNDI informed pt and pt's daughter. Neither facility provides transportation from the hospital. Pt's daughter requested that WRAPPER REWINDER obtain quotes for transportation. [facility] obtained quotes of $114 to [facility] or $140 to [facility]. Pt's daughter informed and agreeable to transportation costs. Pt chose [facility] as first choice when informed that she was accepted at both facilities. [facility] updated. Doc to Doc will be required prior to d/c. SW will continue to follow. LUPE Menendez
--- NOTE | 2017-03-26 12:44 | PCM.PNORTH ---
Subjective Date of Service: Mar 26, 2017 Visit Information: Reason for Visit Right Hip Fracture Surgery/Surgery Date Post-Op Day # 3 Date of Admission: Mar 23, 2017 at 10:55 Hospital Day # Subjective Patient states her pain is well controlled at this time. She is about to start physical therapy and states she does not need any pain meds at this time. She is confused by her hip precautions and does need reminding of them however. Postop General: No Complaints, No Shortness of Breath, No Chest Pain Pain Management: PO Objective Exam Objective Patient standing at bedside Vital Signs and I/O Vital Sign - Last Date Time Temp Pulse Resp B/P Pulse Ox O2 Delivery O2 Flow Rate FiO2 03/26/17 11:02 Room Air 03/26/17 04:33 36.8 83 18 100/68 96 03/25/17 06:05 2.00 Intake and Output 03/25/17 03/25/17 03/26/17 Cumulative From/Thru 15:00 23:00 07:00 03/23/17 07:39 - 03/26/17 06:25 Intake Total 2500 ml 800 ml 6857 ml Output Total 870 ml 400 ml 3320 ml Balance 1630 ml 400 ml 3537 ml Intake Oral 2500 ml 800 ml 4500 ml IV Total 2357 ml Output Urine Total 870 ml 400 ml 3120 ml Emesis 100 ml Estimated Blood Loss 100 ml # Voids 5 3 8 # Bowel Movements 1 Lab & Micro Results Laboratory Tests Test 03/26/17 05:15 White Blood Count 6.1th/mm3 (3.8-10.1) Red Blood Count 3.59mil/mm3 (3.90-5.20) Hemoglobin 10.9g/dL (12.0-15.6) Hematocrit 32.6% (35.0-46.0) Mean Corpuscular Volume 90.8fL (81-100) Mean Corpuscular Hemoglobin 30.4pg (27.0-35.0) Mean Corpuscular Hemoglobin Concent 33.4% (32.0-37.0) Red Cell Distribution Width 12.6% (12.3-15.4) Platelet Count 228bil/L (150-400) Sodium Level 135mEq/L (134-144) Potassium Level 4.0mEq/L (3.5-5.2) Chloride Level 97mEq/L (97-108) Carbon Dioxide Level 26mmol/L (18-29) Blood Urea Nitrogen 11mg/dL (8-27) Creatinine 0.59mg/dL (0.57-1.00) Estimat Glomerular Filtration Rate 140mL/min (>59) Glucose Level 130mg/dL (60-99) Calcium Level 8.9mg/dL (8.5-10.1) Result Diagram: 03/26/1751403/26/17514 General Appearance: Alert, Oriented X3, Cooperative, No Acute Distress Extremities: Distal Pulses Palpable, No Compartment Syndrom Noted, Thigh & Calf Soft/Nontender Postop Sensory Motor: Distal Motor Intact, Movement in Toes, Distal Sensation Intact, NVI Distally SURGICAL WOUND : Wound Location/Description Dressings are clean dry and intact Activity: Activity per PT, Ambulate with PT (weight-bear as tolerated at the right lower extremity using frontwheel walker.) Catheters: None Assessment & Plan Impression Postop day #3 from right hip bipolar hemiarthroplasty performed on 03/23/[address] Jack Null. Problems: Plan Continue weightbearing as tolerated on the right lower extremity using front wheeled walker. Continue formal physical therapy for mobility, gait and safety. Continue Lovenox 40 mg subcutaneous daily 10 days postop with transition to ASA 81 mg 4 weeks postop for DVT prophylaxis. Continue by mouth pain medication as needed. Dressings may be changed as needed. Posterior hip precautions. Follow-up in 2 weeks at [facility] orthopedic clinic with mid-level provider for wound check and suture removal. Follow up in 6 weeks at [facility] orthopedic clinic with Dr. Jack Null with AP pelvis and right crosstable lateral hip x-rays on arrival. Orthopedics thanks hospitalist service for help with medical management of this patient. Orthopedics anticipate discharge to custodial facility by hospitalist service when patient is medically stable to do so. Orthopedics will sign off at this point. VTE Prophylaxis: Sub-Q Enoxaparin (Lovenox 40 mg subcutaneous daily 10 days postop with transition to ASA 81 mg daily 4 weeks postop), SCDs (maintain the left SCD at this time. Avoid right SCD until right hip wound bleeding stopped.) , TALIA Hose (bilateral thigh-high TALIA hose) Resuscitation Status: CPR: Attempt Resuscitation Shabnam Justin PA-C Mar 26, 2017 12:44
[2017-03-26] MEDS: Lactated Ringer's 1,000 ML IV SCH (13:17)
[2017-03-26 14:27] VITALS: BP 120/72; PULSE 77; RESP 20; O2SAT 97
--- NOTE | 2017-03-26 15:24 | NUR ---
activity pt up with 1 assist with FWW, not taking pain meds except for occasional Tylenol. VSS, lungs sounds clear, pt seems mentally clear again for daytime.
[2017-03-26 19:32] VITALS: BP 100/64; PULSE 83; RESP 18; O2SAT 94
--- NOTE | 2017-03-26 19:55 | DRSVH ---
PROCEDURE: CT CHEST WITHOUT CONTRAST ([id number]) INDICATIONS: cxr finding of pulm vessels TECHNIQUE: Noncontrast 5 mm thick sections acquired from the pulmonary apices to the posterior costophrenic angl es. 7 mm thick coronal and sagittal MIP reformats were then acquired. For radiation dose reduction, the following was used: automated exposure control, adjustment of mA and/or kV according to patient size. COMPARISON: [facility], CR, XR CHEST 1VW (PORTABLE), 03/23/2017, 8:10. FINDINGS: Image quality: Good Lungs and pleura: No acute air space opacities. No pleural effusions or pneumothorax. Central and peripheral airways are patent and normal in caliber. Mediastinum: Heart size is normal. No pericardial effusion. No mediastinal adenopathy by size crit eria. Thoracic aorta and central pulmonary arteries are normal in size. Esophagus is normal in marii sal. No hiatal hernia. Bones and chest wall: No suspicious bony lesions. No vertebral body compression fractures. No axil geo or supraclavicular adenopathy by size criteria. Thyroid gland is within normal limits. Abdomen: Visualized upper abdominal solid organs and bowel loops appear normal in the absence of con trast. IMPRESSION: A question was raised about the width of the mediastinum in a supine portable chest x-ray from 3 days ago. This is likely due to prominent vasculature however some infiltrate could also caus e this appearance. The current CT scan does not show any evidence for paramediastinal mass. No adenop athy is seen in the mediastinum. Chest CT without contrast is considered within normal limits Dictated by: Jesús House M.D. on 03/26/2017 at 19:48 Approved by: Jesús House M.D. on 03/26/2017 at 19:53
--- NOTE | 2017-03-26 22:09 | PCM.PNMED ---
Subjective Date of Service Mar 26, 2017 Subjective Patient is seen and examined. She says that she is feeling much better she is looking forward to rehabbing at a sniff. She has had no bowel movement so far but eating well. Immediate V referable regimen that ordered when necessary she does not now for chest x-ray finding of prominent central pulmonary vessels and tortuous aorta. She gets for a CT scan today Exam Vital Signs Vital Sign - Last Date Time Temp Pulse Resp B/P Pulse Ox O2 Delivery O2 Flow Rate FiO2 03/26/17 04:33 36.8 83 18 100/68 96 Room Air 03/25/17 06:05 2.00 Intake and Output 03/25/17 03/25/17 03/26/17 Cumulative From/Thru 15:00 23:00 07:00 03/23/17 07:39 - 03/26/17 00:57 Intake Total 2500 ml 6057 ml Output Total 870 ml 2920 ml Balance 1630 ml 3137 ml Intake Oral 2500 ml 3700 ml IV Total 2357 ml Output Urine Total 870 ml 2720 ml Emesis 100 ml Estimated Blood Loss 100 ml # Voids 5 5 # Bowel Movements 1 Exam General/Constitutional: Awake, Alert, No acute distress Respiratory / Chest: Atraumatic, Breath sounds NL, No respiratory distress Cardiovascular: Heart rate NL, Regular rhythm, Heart sounds NL, No gallop, No murmurs, No rubs Abdomen: Atraumatic, Soft, Non-tender, No distention Musckoskletal:Dressings in place, no signs of hematoma or worsening inflammation. Moving her extremities, unable to raise right leg against gravity , was able to raise his left leg against gravity Vascular: Palpable pedal pulses Abdomen: Flat and nondistended normal bowel sounds Neuro: No focal deficits Psychiatric: No anxiety Lab and Diagnostics Laboratory Tests Test 03/26/17 05:15 White Blood Count 6.1th/mm3 (3.8-10.1) Red Blood Count 3.59mil/mm3 (3.90-5.20) Hemoglobin 10.9g/dL (12.0-15.6) Hematocrit 32.6% (35.0-46.0) Mean Corpuscular Volume 90.8fL (81-100) Mean Corpuscular Hemoglobin 30.4pg (27.0-35.0) Mean Corpuscular Hemoglobin Concent 33.4% (32.0-37.0) Red Cell Distribution Width 12.6% (12.3-15.4) Platelet Count 228bil/L (150-400) Sodium Level 135mEq/L (134-144) Potassium Level 4.0mEq/L (3.5-5.2) Chloride Level 97mEq/L (97-108) Carbon Dioxide Level 26mmol/L (18-29) Blood Urea Nitrogen 11mg/dL (8-27) Creatinine 0.59mg/dL (0.57-1.00) Estimat Glomerular Filtration Rate 140mL/min (>59) Glucose Level 130mg/dL (60-99) Calcium Level 8.9mg/dL (8.5-10.1) Result Diagram: 03/25/17 0510 03/24/17 0805 X-Rays, CTs and MRIs XR right hip IMPRESSION: Right femoral neck fracture. Assessment & Plan > Right hip fracture ( femoral neck) s/p Right bipolar hip arthroplasty POD # 2 - subcapital fracture of the right femoral neck with increased angulation, s/p arthroplasty - entiemetics - oral pain meds , when necessary morphine IV - DVT prophylaxis - lovenox - calcium borderline low, vitamin D levels, low -- We will start patient on vitamin D supplementation Chest x-ray finding, present on admission -- Tortuous aorta, prominent pulmonary vessels the right sub-hilar density -- She is currently asymptomatic -- CT scan without of test is ordered > Hypothyroidism chronic stable - will continue home dose Constipation, acute -- Encouraged patient to take herbal regimen FEN: Regular diet Patient is expected to stay inpatient > 2 days due to nature of the disease and complexities that can arise from it. Dispo: likely SNF Pain Evaluation: Adequate Pain Control VTE Prophylaxis: Sub-Q Enoxaparin (Lovenox 40 mg subcutaneous daily 10 days postop with transition to ASA 81 mg daily 4 weeks postop), SCDs (maintain the left SCD at this time. Avoid right SCD until right hip wound bleeding stopped.) , TALIA Hose (bilateral thigh-high TALIA hose) VTE Mechanical Devices: Intermittant Pneumatic CD Resuscitation Status: CPR: Attempt Resuscitation Time spent 25 minutes Lillian Myles DO Mar 26, 2017 05:21
[2017-03-27 03:36] VITALS: BP 112/74; PULSE 83; RESP 16; O2SAT 92
--- NOTE | 2017-03-27 03:56 | NUR ---
Mentation On initial assessment, patient alert and oriented. Remembered that she was confused night before. At 0300 rounds, patient confused and mumbling. Patient instructed to move right leg over and could not move leg and needed total assist to move in bed. VSS. Call light within reach. Care continues
--- NOTE | 2017-03-27 04:00 | NUR ---
TO CT Patient left unit with CT staff at approximately [address] scan.
[2017-03-27] MEDS ORDERED: OXYC1TAB24 PO (07:20)
[2017-03-27] MEDS ORDERED: DOCU-41 PO (07:20)
--- NOTE | 2017-03-27 10:21 | PCM.DIMED ---
Discharge Instructions Date of Service Mar 27, 2017 Dates of Hospitalization Mar 23, 2017 at 10:55 Discharge Diagnosis Discharge Diagnosis R femoral neck fracture s/p R bipolar hip arthroplasty, Hypothyroidism, Vit D def Diet Discharge Diet: No restrictions Activity Discharge Activity: Outpatient Physical Therapy (at SNF) Call your provider Call your provider for: Fever or Chills, Shortness of breath, Bleeding, Chest pain, Vomitting, Excessive diarrhea, Weakness (unilateral), Other Patient Instructions Patient Instructions Patient does not need a mishra Patient has no communicable diseases Generics may be substituted for medications Patient does not need oxygen She will need Physical therapy, PT/OT recommendations: Pain Presence * Yes - Unrated, but minimal Assessment * Pt pleasant and eager to participate in skilled PT this AM. Pt states she has not been performing exercises in bed; handout at bedside. No recall of precautions; required frequent VC throughout to avoid IR during amb and avoiding hip flexion >90d. Sit to stand w/FWW x 2 CGA. Pt amb to BSC, independent with hygiene. Amb w/FWW 1 x5ft to BSC, 1 x 50ft into hallway and back CGA progressing to SBA; progressing step thru gait, steady, slow pace, VC for IR precaution. Stairs x 2 w/rail and GRAIN OILSEED OR PASTURE GROWER; 2nd attempt considerably more labored than first, pt reporting pain during second attempt. Pt returned to room, eager to sit in chair, call light and tray table in place, nsg notified. MASTICATOR called for pt's breakfast as pt forgot to order. Cont to rec d/c to SNF w/daily PT to reinforce precautions and progress safe functional mobility. Transport via [facility]. Tolerance to Treatment * Good Current Discharge Recommendations * [facility] Discharge Mode of Transportaion * [facility] Ortho recs: Continue weightbearing as tolerated on the right lower extremity using front wheeled walker. Continue formal physical therapy for mobility, gait and safety. Continue Lovenox 40 mg subcutaneous daily 10 days postop with transition to ASA 81 mg 4 weeks postop for DVT prophylaxis. Continue by mouth pain medication as needed. Dressings may be changed as needed. Posterior hip precautions. Diet: General Follow-up plan Follow-up in 2 weeks at [facility] orthopedic clinic with mid-level provider for wound check and suture removal. Follow up in 6 weeks at [facility] orthopedic clinic with Dr. Jack Null with AP pelvis and right crosstable lateral hip x-rays on arrival. F/U with attending at [facility] upon admission to [facility] Lillian Myles DO Mar 27, 2017 10:21
[2017-03-27] MEDS ORDERED: CHOL100043 PO (11:14)
--- NOTE | 2017-03-27 11:16 | NUR ---
Social Work- Discharge/Multidisciplinary Rounds Data: EMR reviewed. Pt is on day 4 of hospitalization for right hip fracture per H&P. Pt discussed in rounds. Pt is medically ready for discharge to [facility] today. Shell, admissions at [facility], informed DUPLICATING MACHINE OPERATOR that she is here for another pt and has the wheelchair van available to use this afternoon. Pt would be able to transport to [facility] with this other resident at approximately 12:15 rather than pt's daughter paying for a wheelchair van. administrative officer confirmed that [facility] could borrow a wheelchair for pt's transport and [facility] would return it. RN updated and agreeable. Pt and pt's daughter updated and agreeable to plan. Paperwork in chart. [facility] faxed to [facility]. Pt to discharge to [facility] at 12:15 via wheelchair van. Discharge packet and orders will be faxed. SW will continue to follow. Assessment: Pt for whom SNF is medically necessary Plan: Pt to discharge to [facility] at 12:15 via wheelchair van. Discharge packet and orders will be faxed. Paperwork in chart, [facility] has been faxed. RN, UC, pt/family, and [facility] all updated and agreeable to plan. SW will continue to follow. LUPE Menendez
--- NOTE | 2017-03-27 11:21 | PCM.DC.MED ---
Discharge Summary Date of Service Mar 27, 2017 Dates of Hospitalization Date of Hospital Admission Mar 23, 2017 at 10:55 Date of Discharge: Mar 27, 2017 Providers: Admitting Physician: Jono Rodriguez MD Primary Care Physician: Zoran Attending Physician: Lillian Reeder DO Diagnosis at Time of Discharge Diagnosis at Time of Discharge R femoral neck fracture s/p R bipolar hip arthroplasty, Hypothyroidism, Vit D def Consultations Orthopedic Surgery, PT/OT Procedures XRay, CTs & MRIs XR right hip IMPRESSION: Right femoral neck fracture. PROCEDURE: CT CHEST WITHOUT CONTRAST ([id number]) INDICATIONS: cxr finding of pulm vessels TECHNIQUE: Noncontrast 5 mm thick sections acquired from the pulmonary apices to the posterior costophrenic angles. 7 mm thick coronal and sagittal MIP reformats were then acquired. For radiation dose reduction, the following was used: automated exposure control, adjustment of mA and/or kV according to patient size. COMPARISON: [facility], CR, XR CHEST 1VW (PORTABLE), 03/23/2017, 8: 10. FINDINGS: Image quality: Good Lungs and pleura: No acute air space opacities. No pleural effusions or pneumothorax. Central and peripheral airways are patent and normal in caliber. Mediastinum: Heart size is normal. No pericardial effusion. No mediastinal adenopathy by size criteria. Thoracic aorta and central pulmonary arteries are normal in size. Esophagus is normal in caliber. No hiatal hernia. Bones and chest wall: No suspicious bony lesions. No vertebral body compression fractures. No axillary or supraclavicular adenopathy by size criteria. Thyroid gland is within normal limits. Abdomen: Visualized upper abdominal solid organs and bowel loops appear normal in the absence of contrast. IMPRESSION: A question was raised about the width of the mediastinum in a supine portable chest x-ray from 3 days ago. This is likely due to prominent vasculature however some infiltrate could also cause this appearance. The current CT scan does not show any evidence for paramediastinal mass. No adenopathy is seen in the mediastinum. Chest CT without contrast is considered within normal limits Dictated by: Jesús House M.D. on 03/26/2017 at 19:48 Approved by: Jesús House M.D. on 03/26/2017 at 19:53 PROCEDURE: X-RAY PELVIS ONE OR TWO VIEWS ([id number]) INDICATIONS: POST OP TECHNIQUE: 1 view of the lower pelvis acquired. COMPARISON: [facility], CR, XR HIP 2VW RT, 03/23/2017, 8:10. FINDINGS: Bones: Patient is status post right hip arthroplasty, with hardware components in expected positions. The hip joint appears congruent. The visualized bony structures appear intact. 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 Soft tissues: Overlying postoperative changes are noted. No suspicious soft tissue densities. IMPRESSION: Right hip prosthesis in anatomic alignment. Dictated by: Quita Abernathy M.D. on 03/23/2017 at 18:18 Approved by: Quita Abernathy M.D. on 03/23/2017 at 18:19 PROCEDURE: X-RAY RIGHT HIP COMPLETE, MINIMUM TWO VIEWS ([id number]) INDICATIONS: 81 year-old woman with fall. TECHNIQUE: 2 views of the hip were acquired. COMPARISON: None. FINDINGS: Bones: There is a subcapital fracture of the right femoral neck with increased angulation. No suspicious bony lesions. The visualized pelvic ring appears intact. Degenerative joint disease noted in the hips bilaterally. Soft tissues: No suspicious soft tissue calcifications or masses. IMPRESSION: Right femoral neck fracture. Dictated by: Quita Abernathy M.D. on 03/23/2017 at 9:43 Approved by: Quita Abernathy M.D. on 03/23/2017 at 9:44 Brief History Patient is a 81 yo F with pmh of hypothyroidism, breast cancer s/p mastectomy, tristen knee replacement and femur fracture, who is being admitted due to hip fracture. Patient was at home, getting up from chair, tried to kick in a chair and ended up tripping and falling on her right side. She denies any syncopal episode at that point, did not hit her head. She mentioned that she did have a bone density scan about 15 years ago and it was normal. Does take vitamin D at home. Denies chest pain, shortness of breath or diarrhea. Hospital Course > Right hip fracture ( femoral neck) s/p Right bipolar hip arthroplasty POD # 4 - subcapital fracture of the right femoral neck with increased angulation, s/p arthroplasty - entiemetics - oral pain meds , when necessary morphine IV - DVT prophylaxis - lovenox - calcium borderline low, vitamin D levels, low --We will start patient on vitamin D supplementation at discharge, repeat level check in 6 mo -- Dr. Ahuja from [facility] is contacted and briefed on patient arrival. Chest x-ray finding, present on admission -- Tortuous aorta, prominent pulmonary vessels the right sub-hilar density -- She is currently asymptomatic -- CT scan without of test is ordered, no acute findings, no masses > Hypothyroidism chronic stable - will continue home dose Constipation, acute -- Encouraged patient to take her bowel regimen, she had a BM on the day of discharge FEN: Regular diet Patient is expected to stay inpatient > 2 days due to nature of the disease and complexities that can arise from it. Exam Vital Signs (Last) Date Time Temp Pulse Resp B/P Pulse Ox O2 Delivery O2 Flow Rate FiO2 03/27/17 09:21 Room Air 03/27/17 03:36 36.5 83 16 112/74 92 03/25/17 06:05 2.00 Exam General/Constitutional: Awake, Alert, No acute distress Respiratory / Chest: Atraumatic, Breath sounds NL, No respiratory distress Cardiovascular: Heart rate NL, Regular rhythm, Heart sounds NL, No gallop, faint systolic murmur murmur, No rubs Abdomen: Atraumatic, Soft, Non-tender, No distention Musckoskletal:Dressings in place, no signs of hematoma or worsening inflammation. Moving her extremities, unable to raise right leg against gravity , was able to raise his left leg against gravity Vascular: Palpable pedal pulses Abdomen: Flat and nondistended normal bowel sounds Neuro: No focal deficits Psychiatric: No anxiety Laboratory Tests 72 Hours Test 03/24/17 23:45 03/25/17 05:10 03/26/17 05:15 Urine Color Straw (YELLOW) Urine Appearance Turbid (CLEAR,HAZY) Urine pH 6.0 (5.0-8.0) Urine Specific [place] 1.019 (1.003-1.035) Urine Protein Negativemg/dL (NEG,TRACE) Urine Glucose (UA) Negativemg/dL (NEGATIVE) Urine Ketones 40mg/dL (NEGATIVE) Urine Occult Blood Negative (NEGATIVE) Urine Nitrite Negative (NEGATIVE) Urine Bilirubin Negative (NEGATIVE) Urine Urobilinogen Normalmg/dL (NORMAL) Urine Leukocyte Esterase Trace (NEGATIVE) Urine RBC 0-2/hpf (0-2) Urine WBC 0-5/hpf (0-5) Urine Epithelial Cells Moderate/hpf (NONE-MOD) Urine Crystals Amorphous urates (NONE Urine Bacteria None/hpf (NONE-FEW) Urine Hyaline Casts None/lpf (NONE) Urine Granular Casts None seen (NONE SEEN) Urine Waxy Casts None seen (NONE SEEN) Urine Red Blood Cell Casts None seen (NONE SEEN) Urine White Blood Cell Casts None seen (NONE SEEN) Urine Mucus Present (None Seen) Urine Trichomonas None seen (NONE SEEN) Urine Yeast None (NONE SEEN) Urinalysis Comment None White Blood Count 7.7th/mm3 (3.8-10.1) 6.1th/mm3 (3.8-10.1) Red Blood Count 3.59mil/mm3 (3.90-5.20) 3.59mil/mm3 (3.90-5.20) Hemoglobin 10.6g/dL (12.0-15.6) 10.9g/dL (12.0-15.6) Hematocrit 32.4% (35.0-46.0) 32.6% (35.0-46.0) Mean Corpuscular Volume 90.3fL (81-100) 90.8fL (81-100) Mean Corpuscular Hemoglobin 29.5pg (27.0-35.0) 30.4pg (27.0-35.0) Mean Corpuscular Hemoglobin Concent 32.7% (32.0-37.0) 33.4% (32.0-37.0) Red Cell Distribution Width 12.5% (12.3-15.4) 12.6% (12.3-15.4) Platelet Count 207bil/L (150-400) 228bil/L (150-400) Neutrophils (%) (Auto) 83.6% (40-74) Lymphocytes (%) (Auto) 8.7% (14-46) Monocytes (%) (Auto) 7.0% (4-12) Eosinophils (%) (Auto) 0.3% (0-5) Basophils (%) (Auto) 0.3% (0-3) Hemoglobin A1c 5.8% (4.8-5.6) Sodium Level 135mEq/L (134-144) Potassium Level 4.0mEq/L (3.5-5.2) Chloride Level 97mEq/L (97-108) Carbon Dioxide Level 26mmol/L (18-29) Blood Urea Nitrogen 11mg/dL (8-27) Creatinine 0.59mg/dL (0.57-1.00) Estimat Glomerular Filtration Rate 140mL/min (>59) Glucose Level 130mg/dL (60-99) Calcium Level 8.9mg/dL (8.5-10.1) Test 03/23/17 08:10 03/24/17 05:36 03/24/17 23:45 03/25/17 05:10 Prothrombin Time 10.5sec (8.1-12.5) Prothromb Time International Ratio 0.98ratio Activated Partial Thromboplast Time 25.0sec (22.8-33.0) Total Bilirubin 0.5mg/dL (0.0-1.2) Aspartate Amino Transf (AST/SGOT) 17U/L (0-50) Alanine Aminotransferase (ALT/SGPT) 13U/L (0-32) Alkaline Phosphatase 47U/L (25-165) Total Protein 5.8g/dL (6.4-8.4) Albumin 3.5g/dL (3.4-5.0) Hold Kramer Top Tube Received (Received) Vitamin D 25-Hydroxy 18.3ng/mL (30.0-100.0) Urine Color Straw (YELLOW) Urine Appearance Turbid (CLEAR,HAZY) Urine pH 6.0 (5.0-8.0) Urine Specific [place] 1.019 (1.003-1.035) Urine Protein Negativemg/dL (NEG,TRACE) Urine Glucose (UA) Negativemg/dL (NEGATIVE) Urine Ketones 40mg/dL (NEGATIVE) Urine Occult Blood Negative (NEGATIVE) Urine Nitrite Negative (NEGATIVE) Urine Bilirubin Negative (NEGATIVE) Urine Urobilinogen Normalmg/dL (NORMAL) Urine Leukocyte Esterase Trace (NEGATIVE) Urine RBC 0-2/hpf (0-2) Urine WBC 0-5/hpf (0-5) Urine Epithelial Cells Moderate/hpf (NONE-MOD) Urine Crystals Amorphous urates (NONE Urine Bacteria None/hpf (NONE-FEW) Urine Hyaline Casts None/lpf (NONE) Urine Granular Casts None seen (NONE SEEN) Urine Waxy Casts None seen (NONE SEEN) Urine Red Blood Cell Casts None seen (NONE SEEN) Urine White Blood Cell Casts None seen (NONE SEEN) Urine Mucus Present (None Seen) Urine Trichomonas None seen (NONE SEEN) Urine Yeast None (NONE SEEN) Urinalysis Comment None Neutrophils (%) (Auto) 83.6% (40-74) Lymphocytes (%) (Auto) 8.7% (14-46) Monocytes (%) (Auto) 7.0% (4-12) Eosinophils (%) (Auto) 0.3% (0-5) Basophils (%) (Auto) 0.3% (0-3) Hemoglobin A1c 5.8% (4.8-5.6) Test 03/26/17 05:15 White Blood Count 6.1th/mm3 (3.8-10.1) Red Blood Count 3.59mil/mm3 (3.90-5.20) Hemoglobin 10.9g/dL (12.0-15.6) Hematocrit 32.6% (35.0-46.0) Mean Corpuscular Volume 90.8fL (81-100) Mean Corpuscular Hemoglobin 30.4pg (27.0-35.0) Mean Corpuscular Hemoglobin Concent 33.4% (32.0-37.0) Red Cell Distribution Width 12.6% (12.3-15.4) Platelet Count 228bil/L (150-400) Sodium Level 135mEq/L (134-144) Potassium Level 4.0mEq/L (3.5-5.2) Chloride Level 97mEq/L (97-108) Carbon Dioxide Level 26mmol/L (18-29) Blood Urea Nitrogen 11mg/dL (8-27) Creatinine 0.59mg/dL (0.57-1.00) Estimat Glomerular Filtration Rate 140mL/min (>59) Glucose Level 130mg/dL (60-99) Calcium Level 8.9mg/dL (8.5-10.1) Discharge Medications Discharge Medications Cholecalciferol (Vitamin D3) (Vitamin D) 1,000 Unit Tablet 1,000 UNIT PO DAILY Prescribed by: LILLIAN REEDER DO Docusate Sodium (Colace) 100 Mg Capsule 100 MG PO BID Prescribed by: LILLIAN REEDER DO Levothyroxine (Levothyroxine) 112 Mcg Tablet 112 MCG PO DAILY (Reported) As needed oxyCODONE-Acetaminophen 5-325 mg (oxyCODONE-Acetaminophen 5-325 mg) 1 Each Tablet 1 TAB PO Q4H PRN PRN For Pain Prescribed by: LILLIAN REEDER DO Followup Plan Follow-up plan Follow-up in 2 weeks at [facility] orthopedic clinic with mid-level provider for wound check and suture removal. Follow up in 6 weeks at [facility] orthopedic clinic with Dr. Jack Null with AP pelvis and right crosstable lateral hip x-rays on arrival. F/U with attending at [facility] upon admission to SNF Discharge Diet: No restrictions Discharge Activity: Outpatient Physical Therapy (at [facility]) Patient Instructions Patient does not need a mishra Patient has no communicable diseases Generics may be substituted for medications Patient does not need oxygen She will need Physical therapy, PT/OT recommendations: Pain Presence * Yes - Unrated, but minimal Assessment * Pt pleasant and eager to participate in skilled PT this AM. Pt states she has not been performing exercises in bed; handout at bedside. No recall of precautions; required frequent VC throughout to avoid IR during amb and avoiding hip flexion >90d. Sit to stand w/FWW x 2 CGA. Pt amb to BSC, independent with hygiene. Amb w/FWW 1 x5ft to BSC, 1 x 50ft into hallway and back CGA progressing to SBA; progressing step thru gait, steady, slow pace, VC for IR precaution. Stairs x 2 w/rail and MANAGER CT; 2nd attempt considerably more labored than first, pt reporting pain during second attempt. Pt returned to room, eager to sit in chair, call light and tray table in place, nsg notified. SUBCONTRACTS MANAGER called for pt's breakfast as pt forgot to order. Cont to rec d/c to SNF w/daily PT to reinforce precautions and progress safe functional mobility. Transport via [facility]. Tolerance to Treatment * Good Current Discharge Recommendations * Care Home Facility Discharge Mode of Transportaion * [facility] Ortho recs: Continue weightbearing as tolerated on the right lower extremity using front wheeled walker. Continue formal physical therapy for mobility, gait and safety. Continue Lovenox 40 mg subcutaneous daily 10 days postop with transition to ASA 81 mg 4 weeks postop for DVT prophylaxis. Continue by mouth pain medication as needed. Dressings may be changed as needed. Posterior hip precautions. Diet: General Time spent Greater than 30 minutes was spent in preparation of discharge with greater than 50% of that time dedicated to patient counseling and coordination of care. Lillian Reeder DO Mar 27, 2017 11:21
--- NOTE | 2017-03-27 11:35 | NUR ---
Retirement Transfer: Faxed orders to [facility] and placed copy in the chart, [facility] will be here to pick and shovel worker at 1215. BATTING MACHINE OPERATOR INSULATION and RANDALL
[2017-03-27] MEDS ORDERED: LOV40 SUBQ (11:40)
[2017-03-27] MEDS ORDERED: ASPI-973 PO (11:41)
--- NOTE | 2017-03-27 11:49 | NUR ---
Social Work-Discharge Data: Pt to discharge today. OPTIONS TRADER and SW created packet and faxed orders. Shell from [facility] will pick pt up at 12:15. RN, UC, pt/family, and [facility] all updated and agreeable to plan. Paperwork in chart, [facility] has been faxed. aware of Doc to Doc requirement. No additional discharge needs identified. Assessment: Pt for whom SNF is medically necessary Plan: Pt to discharge to [facility] with [facility] to follow via wheelchair van at 12:15 pm. Paperwork in chart, [facility] has been faxed. No additional discharge needs identified. Pat Phipsp, CAT OPERATOR
[2017-03-27 12:12] VITALS: BP 86/53; PULSE 78; RESP 16; O2SAT 93
--- NOTE | 2017-03-27 12:30 | NUR ---
discharged to [facility] per their facility van, report given to the nurse that was transporting her. Pt eating/drinking well, ambulatory with 1 assist, still quite forgetful, not remembering her precautions very well
[2017-03-27] MEDS: oxyCODONE-Acetamin 5-325 mg Tablet PO PRN (12:49)
== END 2017-03-27 13:00 | DRG 470 ==
LOC: EDBD 06:54 → SED 06:54 → OSC 10:55
PROVIDERS: ADMIT Internal Medicine; ATTEND Internal Medicine
PROC: 0SRR019 Replacement of Right Hip Joint, Femoral Surface with Metal Synthetic Substitute, Cemented, Open Approach (ICD-10-PCS; principal; 2017-03-23 14:00)
DX: S72.011A Unspecified intracapsular fracture of right femur, initial encounter for closed fracture (principal); E03.9 Hypothyroidism, unspecified; E55.9 Vitamin D deficiency, unspecified; Z96.653 Presence of artificial knee joint, bilateral; W01.0XXA Fall on same level from slipping, tripping and stumbling without subsequent striking against object, initial encounter; Y93.89 Activity, other specified; Y92.009 Unspecified place in unspecified non-institutional (private) residence as the place of occurrence of the external cause